=== PATIENT | female | born 1970 | race Caucasian/White ===

== ENCOUNTER 2016-03-11 16:49 | Observation (INO) | payer BC ==
[2016-03-11] MEDS ORDERED: ASPIRIN 81 MG CHEW PO STA (17:30)
[2016-03-11] MEDS ORDERED: NITROGLYCERIN SL TABS 0.4 MG TAB SUBLINGUAL STA (17:30)
--- NOTE | 2016-03-11 17:36 | ED ---
Chest Pain HPI - General Chief Complaint: Chest Pain Stated Complaint: Chest Pain Time Seen by Provider: 03/11/16 17:13 Source: patient, RN notes reviewed Mode of arrival: wheelchair Limitations: no limitations - History of Present Illness Initial Comments: Is a 45-year-old female who is a smoker but who has no personal history of heart or lung disease who states she's been feeling out of sorts since [place]. She states she's been having intermittent episodes of chest pain and left shoulder/scapular pain today she had some left second third finger numbness and tingling which resolved she does complain of some left-sided chest discomfort heartburn-like in nature 7/10 in severity currently is 5/10 also has a headache no nausea no vomiting fevers no chills or sweats. MD Complaint: chest pain - Related Data Home Medications Medication Instructions Recorded Confirmed Atorvastatin [Lipitor] 10 mg PO HS 03/11/16 03/11/16 Cetirizine HCl [Zyrtec] 10 mg PO DAILY PRN 03/11/16 03/11/16 Levothyroxine Sodium [Synthroid] 100 mcg PO DAILY 03/11/16 03/11/16 Allergies Allergy/AdvReac Type Severity Reaction Status Date / Time corn Allergy Rash/Hives Verified 03/11/16 17:49 egg Allergy Rash/Hives Verified 03/11/16 17:49 Milk Containing Products Allergy Rash/Hives Verified 03/11/16 17:49 [Dairy] Review of Systems ROS Statement: Those systems with pertinent positive or pertinent negative responses have been documented in the HPI. ROS Other: All systems not noted in ROS Statement are negative. EKG Findings - EKG Results: EKG: interpreted by NATACHA DUBOSEL, sinus rhythm, normal axis, normal QRS, normal ST/ T, no acute changes (Normal sinus rhythm of 77. Interval 158 QRS duration 84 QT /QTC of 382/[address]-T wave changes.) Past Medical History Past Medical History: Thyroid Disorder History of Any Multi-Drug Resistant Organisms: None Reported Past Surgical History: Section Past Psychological History: ADD/ADHD Smoking Status: Current every day smoker Past Alcohol Use History: Rare Past Drug Use History: None Reported General Exam - General Exam Comments Initial Comments: This is a well-developed well-nourished awake alert oriented x3 female Limitations: no limitations General appearance: alert, anxious Head exam: Present: atraumatic, normocephalic, normal inspection Eye exam: Present: normal appearance, PERRL, EOMI. Absent: scleral icterus, conjunctival injection, periorbital swelling ENT exam: Present: normal exam, mucous membranes moist Neck exam: Present: normal inspection. Absent: tenderness, meningismus, lymphadenopathy Respiratory exam: Present: normal lung sounds bilaterally. Absent: respiratory distress, wheezes, rales, rhonchi, stridor Cardiovascular Exam: Present: regular rate, normal rhythm, normal heart sounds. Absent: systolic murmur, diastolic murmur, rubs, gallop, clicks GI/Abdominal exam: Present: soft, normal bowel sounds. Absent: distended, tenderness, guarding, rebound, rigid, mass, bruit, pulsatile mass Extremities exam: Present: normal inspection, full ROM, normal capillary refill. Absent: tenderness, pedal edema, joint swelling, calf tenderness Back exam: Present: normal inspection Neurological exam: Present: alert, oriented X3, CN II-XII intact Psychiatric exam: Present: normal affect, anxious Skin exam: Present: warm, dry, intact, normal color. Absent: rash Course Vital Signs 03/11/16 03/11/16 17:06 18:37 Temperature 98.2 F Pulse Rate 81 80 Respiratory 20 18 Rate Blood Pressure 129/72 154/75 O2 Sat by Pulse 97 99 Oximetry Chest Pain MDM - MDM Review the x-ray shows no acute findings. Patient had equivocal change from oxygen nitroglycerin. He later family history and the symptoms patient be admitted for evaluation by cardiology. I did discuss case with Dr. Langston. Disposition Clinical Impression: Chest pain, Unstable angina pectoris, Atypical chest pain Disposition: ADMITTED IP TO THIS [facility] Condition: Stable
[2016-03-11 18:29] LABS: Basophils # (A) 0.1 k/uL (0-0.2); Basophils % (A) 1 %; CH 34.7; Eosinophils # (A) 0.3 k/uL (0-0.7); Eosinophils % (A) 4 %; HCT 37.6 % (34.0-46.0); HDW 2.99; HGB 12.5 gm/dL (11.4-16.0); Luc % (Auto) 1; Lymphocytes # (A) 2.6 k/uL (1.0-4.8); Lymphocytes % (A) 31 %; MCH 34.1 pg (25.0-35.0); MCHC 33.2 g/dL (31.0-37.0); MCV 102.7 fL (80.0-100.0); Macrocytosis Slight; Mean Platelet Volume 8.3; Monocytes # (A) 0.4 k/uL (0-1.0); Monocytes % (A) 5 %; Neutrophils # (A) 4.9 k/uL (1.3-7.7); Neutrophils % (A) 58 %; RBC 3.66 m/uL (3.80-5.40); WBC 8.4 k/uL (3.8-10.6); WBC (Perox) 8.54
[2016-03-11 18:40] LABS: ALT 29 U/L (9-52); AST 19 U/L (14-36); Alkaline Phosphatase 84 U/L (38-126); Amylase 32 U/L (30-110); Anion Gap 10 mmol/L; Blood Urea Nitrogen 16 mg/dL (7-17); Calcium 8.3 mg/dL (8.4-10.2); Carbon Dioxide 27 mmol/L (22-30); Chloride 103 mmol/L (98-107); Glucose 80 mg/dL (74-99); Magnesium 2.5 mg/dL (1.6-2.3); Non-African American GFR(MDRD) >60 (>60 ml/min/1.73 sqM); Potassium 4.4 mmol/L (3.5-5.1); Sodium 140 mmol/L (137-145); Total Bilirubin 0.3 mg/dL (0.2-1.3); Total Protein 6.8 g/dL (6.3-8.2)
[2016-03-11 18:43] LABS: Partial Thromboplastin Time 24.7 sec (22.0-30.0); Prothrombin Time 10.4 sec (9.0-12.0)
[2016-03-11 18:56] LABS: Creatine Kinase 45 U/L (30-135)
[2016-03-11 19:07] VITALS: RESP 18
[2016-03-11 19:09] LABS: Creatine Kinase MB 0.3 ng/mL (0.0-2.4); Troponin I <0.012 ng/mL (0.000-0.034)
--- NOTE | 2016-03-11 19:29 | XR ---
EXAMINATION TYPE: XR chest 2V DATE OF EXAM: 03/11/2016 7:23 PM COMPARISON: Prior chest x-ray third January 2014 HISTORY: Chest pain TECHNIQUE: Frontal and lateral views of the chest are obtained. FINDINGS: There is no focal air space opacity, pleural effusion, or pneumothorax seen. The cardiac silhouette size is within normal limits. There are overlying cardiac leads. The osseous structures a re intact. IMPRESSION: No acute cardiopulmonary process.
[2016-03-11] MEDS ORDERED: NITROGLYCERIN SL TABS 0.4 MG TAB SUBLINGUAL PRN (20:41)
[2016-03-11] MEDS ORDERED: LORATADINE 10 MG TAB PO PRN (20:43)
[2016-03-11] MEDS ORDERED: HEPARIN SODIUM,PORCINE/D5W PMX 25,000 UNIT in DEXTROSE/WATER 1 500ML.BAG IV SCH (20:45)
[2016-03-11] MEDS ORDERED: ATORVASTATIN 10 MG TAB PO SCH (21:00)
[2016-03-11] MEDS: HEPARIN SODIUM,PORCINE 5,000 UNIT/ML 1 ML VIAL IV ONE (21:12)
[2016-03-12 01:38] LABS: Creatine Kinase 41 U/L (30-135)
[2016-03-12 01:52] LABS: Creatine Kinase MB 0.3 ng/mL (0.0-2.4); Troponin I <0.012 ng/mL (0.000-0.034)
[2016-03-12] MEDS: NITROGLYCERIN OINT 1 INCH/GM PACKET TOPICAL SCH ×3 (02:09→11:37)
[2016-03-12 04:16] LABS: Cholesterol 101 mg/dL (<200); HDL Cholesterol 34 mg/dL (40-60); Triglycerides 112 mg/dL (<150)
[2016-03-12 05:08] VITALS: BMI 48.5
[2016-03-12] MEDS: HEPARIN SODIUM,PORCINE 5,000 UNIT/ML 1 ML VIAL IV ONE (05:45)
[2016-03-12] MEDS ORDERED: LEVOTHYROXINE 100 MCG TAB PO SCH (06:30)
[2016-03-12 07:49] LABS: Creatine Kinase 36 U/L (30-135)
[2016-03-12 08:02] LABS: Creatine Kinase MB <0.2 ng/mL (0.0-2.4); Troponin I <0.012 ng/mL (0.000-0.034)
--- NOTE | 2016-03-12 08:11 | P.HPIM ---
History of Present Illness H&P Date: 03/12/16 Chief Complaint: Shoulder pain with bilateral arm tingling. This is a history of physical for a 45-year-old white female. She has had odd symptoms of dizziness and lightheadedness since [place]. However, she's been having left shoulder pain with bilateral arm tingling which is minimal becoming more frequent in the last week. She would describe the shoulder and anterior chest pain as a dull ache. No radiation to the jaw however. The patient states swallowing difficulties. However, she is had to change her diet significantly in the last 2 months secondary to being ALLERGIC to cow's milk, and eggs and corn. She states yesterday she ate a portabello mushroom with avocados. Food is not necessary provocative to her symptoms, and neither is activity. However, she has significant risk factors of a brother with premature heart disease. Heart attack there for the age of 50. However, she is also a 1 pack per day smoker for at least 20 years. Had a long discussion regarding smoking cessation. Review of Systems Constitutional: Denies chills, Denies fever Eyes: denies blurred vision, denies pain Ears, nose, mouth and throat: Denies headache, Denies sore throat Cardiovascular: Reports chest pain Respiratory: Reports as per HPI Gastrointestinal: Reports as per HPI Genitourinary: Denies dysuria, Denies hematuria Musculoskeletal: Denies myalgias Past Medical History Past Medical History: Chest Pain / Angina, Hyperlipidemia, Sleep Apnea/CPAP/ BIPAP, Thyroid Disorder Additional Past Medical History / Comment(s): stress test, "sometimes at night wakes up feels like heart is racing", no cpap used, past uti, occ constipation , ddd l4-l5, stated at [facility] had 2 epidoses where when she laughed really hard and bent her head backwaRD AND FELT LIKE SHE WAS GOING TO BLACK OUT. History of Any Multi-Drug Resistant Organisms: None Reported Past Surgical History: Section Additional Past Surgical History / Comment(s): julio carpal tunnel Past Anesthesia/Blood Transfusion Reactions: No Reported Reaction Past Psychological History: ADD/ADHD Additional Psychological History / Comment(s): not currently taking meds for add /adhd, once dx w/ major depressive disorder used to take meds. been off meds for 2 years. a time of admit stated does'nt feel depressed and no thought oF harming self. Smoking Status: Current every day smoker Past Alcohol Use History: Rare Additional Past Alcohol Use History / Comment(s): started smopking at age 17- smoked 1 ppd Past Drug Use History: None Reported - Past Family History Mother Family Medical History: Osteoarthritis (OA) Additional Family Medical History / Comment(s): from lung cacner w/ mets to bones, osteoporsis, hyper active thyroid Father Family Medical History: Cancer Additional Family Medical History / Comment(s): polio, cataracts, had breast cancer w mets no tx, emphysema. . Medications and Allergies Home Medications Medication Instructions Recorded Confirmed Type Atorvastatin [Lipitor] 10 mg PO HS 03/11/16 03/11/16 History Cetirizine HCl [Zyrtec] 10 mg PO DAILY PRN 03/11/16 03/11/16 History Levothyroxine Sodium [Synthroid] 100 mcg PO DAILY 03/11/16 03/11/16 History Allergies Allergy/AdvReac Type Severity Reaction Status Date / Time corn Allergy Rash/Hives Verified 03/11/16 17:49 egg Allergy Rash/Hives Verified 03/11/16 17:49 Milk Containing Products Allergy Rash/Hives Verified 03/11/16 17:49 [Dairy] Physical Exam Vitals: Vital Signs Temp Pulse Pulse Resp BP BP Pulse Ox 03/12/16 05:21 18 03/12/16 04:00 54 L 16 138/75 99 03/12/16 00:00 98.0 F 75 16 121/76 96 03/11/16 21:16 98.1 F 77 18 126/77 100 03/11/16 21:00 18 Intake and Output 03/11/16 03/12/16 03/12/16 22:59 06:59 14:59 Intake Total 170.667 Balance 170.667 Intake: Intake, IV Titration 170.667 Amount Heparin Sodium,Porcine/ 170.667 D5w Pmx 25,000 unit In Dextrose/Water 1 500ml. bag @ 8.58 UNITS/KG/HR 20 mls/hr IV .Q24H [facility] Rx#: [id number] Other: # Voids 1 Weight 116.573 kg - Constitutional General appearance: obese - EENT Eyes: no abnormal pupil - Neck Neck: no lymphadenopathy - Respiratory Respiratory: bilateral: CTA - Cardiovascular Rhythm: regular Heart sounds: normal: S1, S2 - Gastrointestinal General gastrointestinal: soft, no tenderness - Neurologic Neurologic: CNII-XII intact - Psychiatric Psychiatric: A&O x's 3, intact judgment & insight Results CBC & Chem 7: 03/11/16 18:15 03/11/16 18:15 Labs: Abnormal Lab Results - Last 24 Hours (Table) 03/12/16 03/12/16 Range/Units 03:16 03:16 APTT 32.6 H (22.0-30.0) sec HDL Cholesterol 34 L (40-60) mg/dL Thrombosis Risk Factor Assmnt - Choose All That Apply Each Factor Represents 1 point: Age 41-60 years Thrombosis Risk Factor Assessment Total Risk Factor Score: 1 Thrombosis Risk Factor Assessment Level: Low Risk Assessment and Plan (1) Chest pain Status: Acute (2) Unstable angina pectoris Status: Acute Plan: Given her symptomotology and family history with tobacco use, go ahead and order appropriate stress thallium testing if okay with cardiology. 2. Smoking cessation discussed with the patient per Otherwise, it seemingly seems as though she has some type of polycystic ovarian disease. See orders otherwise.
--- NOTE | 2016-03-12 08:45 | P.CRDCN ---
History of Present Illness Consult date: 03/12/16 Chief complaint: Chest discomfort History of present illness: This is a pleasant 45-year-old female patient with a past medical history significant for hypothyroidism and also obesity presented to the hospital complaining of chest discomfort. She describes intermittent episodes of chest discomfort, started about one week ago, as a pressure/dull discomfort over the left side of the chest was some radiation to the neck and left arm. Each episode lasted about a few minutes only. These episodes are not exertional in nature. She underwent an EKG which showed sinus mechanism without any significant ST or T-wave abnormalities. She underwent 3 sets of cardiac enzymes came in to be unremarkable. The patient is not aware of any prior history of coronary artery disease and never seen any chip mucker in the past. In terms of her past medical history, she has dyslipidemia and obesity. She does smoke about one pack per day. She has no significant family history of premature CAD. Past Medical History Past Medical History: Chest Pain / Angina, Hyperlipidemia, Sleep Apnea/CPAP/ BIPAP, Thyroid Disorder Additional Past Medical History / Comment(s): stress test, "sometimes at night wakes up feels like heart is racing", no cpap used, past uti, occ constipation , ddd l4-l5, stated at [place] had 2 epidoses where when she laughed really hard and bent her head backwaRD AND FELT LIKE SHE WAS GOING TO BLACK OUT. History of Any Multi-Drug Resistant Organisms: None Reported Past Surgical History: Section Additional Past Surgical History / Comment(s): julio carpal tunnel Past Anesthesia/Blood Transfusion Reactions: No Reported Reaction Past Psychological History: ADD/ADHD Additional Psychological History / Comment(s): not currently taking meds for add /adhd, once dx w/ major depressive disorder used to take meds. been off meds for 2 years. a time of admit stated does'nt feel depressed and no thought oF harming self. Smoking Status: Current every day smoker Past Alcohol Use History: Rare Additional Past Alcohol Use History / Comment(s): started smopking at age 17- smoked 1 ppd Past Drug Use History: None Reported - Past Family History Mother Family Medical History: Osteoarthritis (OA) Additional Family Medical History / Comment(s): from lung cacner w/ mets to bones, osteoporsis, hyper active thyroid Father Family Medical History: Cancer Additional Family Medical History / Comment(s): polio, cataracts, had breast cancer w mets no tx, emphysema. . Medications and Allergies Home Medications Medication Instructions Recorded Confirmed Type Atorvastatin [Lipitor] 10 mg PO HS 03/11/16 03/11/16 History Cetirizine HCl [Zyrtec] 10 mg PO DAILY PRN 03/11/16 03/11/16 History Levothyroxine Sodium [Synthroid] 100 mcg PO DAILY 03/11/16 03/11/16 History Allergies Allergy/AdvReac Type Severity Reaction Status Date / Time corn Allergy Rash/Hives Verified 03/11/16 17:49 egg Allergy Rash/Hives Verified 03/11/16 17:49 Milk Containing Products Allergy Rash/Hives Verified 03/11/16 17:49 [Dairy] Physical Exam Vitals: Vital Signs Temp Pulse Pulse Pulse Resp BP BP 03/12/16 08:00 98.0 F 72 18 104/53 03/12/16 05:21 18 03/12/16 04:00 54 L 16 138/75 03/12/16 00:00 98.0 F 75 16 121/76 03/11/16 21:16 98.1 F 77 18 126/77 03/11/16 21:00 18 Pulse Ox 03/12/16 08:00 97 03/12/16 05:21 03/12/16 04:00 99 03/12/16 00:00 96 03/11/16 21:16 100 03/11/16 21:00 Intake and Output 03/11/16 03/12/16 03/12/16 22:59 06:59 14:59 Intake Total 170.667 Balance 170.667 Intake: Intake, IV Titration 170.667 Amount Heparin Sodium,Porcine/ 170.667 D5w Pmx 25,000 unit In Dextrose/Water 1 500ml. bag @ 8.58 UNITS/KG/HR 20 mls/hr IV .Q24H COUNT INCLUDES THE [facility] Rx#: [id number] Other: # Voids 1 Weight 116.573 kg - Constitutional General appearance: no acute distress - Respiratory Respiratory: bilateral: CTA - Cardiovascular Rhythm: regular Heart sounds: normal: S1, S2 Results 03/11/16 18:15 03/11/16 18:15 Cardiac Enzymes 03/12/16 03/12/16 Range/Units 00:38 06:43 CK-MB (CK-2) 0.3 <0.2 (0.0-2.4) ng/mL Troponin I <0.012 <0.012 (0.000-0.034) ng/mL Coagulation 03/12/16 Range/Units 03:16 APTT 32.6 H (22.0-30.0) sec Lipids 03/12/16 Range/Units 03:16 Triglycerides 112 (<150) mg/dL Cholesterol 101 (<200) mg/dL HDL Cholesterol 34 L (40-60) mg/dL Current Medications Generic Name Dose Route Start Last Admin Trade Name Freq PRN Reason Stop Dose Admin Aspirin 325 mg 03/12/16 09:00 Aspirin PO DAILY COUNT INCLUDES THE [facility] Atorvastatin Calcium 10 mg 03/11/16 21:00 03/12/16 02:09 Lipitor PO Not Given HS COUNT INCLUDES THE [facility] Heparin Sodium/Dextrose 25,000 500 mls @ 20 mls/hr 03/11/16 20:45 03/12/16 05 :45 unit/ IV Solution IV 11.53 units/kg/hr .Q24H [facility] 26.9 mls/hr Protocol Titration 8.58 UNITS/KG/HR Levothyroxine Sodium 100 mcg 03/12/16 06:30 03/12/16 06:44 Synthroid PO Not Given DAILY@0630 COUNT INCLUDES THE [facility] Loratadine 10 mg 03/11/16 20:43 Claritin PO DAILY PRN Allergy Symptoms Nitroglycerin 1 inch 03/12/16 00:00 03/12/16 06:05 Nitro-Bid Oint TOPICAL Not Given Q6HR COUNT INCLUDES THE [facility] Nitroglycerin 0.4 mg 03/11/16 20:41 Nitrostat SUBLINGUAL Q5M PRN Chest Pain Intake and Output 03/11/16 03/12/16 03/12/16 22:59 06:59 14:59 Intake Total 170.667 Balance 170.667 Intake: Intake, IV Titration 170.667 Amount Heparin Sodium,Porcine/ 170.667 D5w Pmx 25,000 unit In Dextrose/Water 1 500ml. bag @ 8.58 UNITS/KG/HR 20 mls/hr IV .Q24H [facility] Rx#: [id number] Other: # Voids 1 Weight 116.573 kg Assessment and Plan Plan: Assessment #1 atypical chest discomfort #2 significant history of smoking #3 obesity Plan #1 the patient was ruled out for acute coronary event #2 I am proceeding with a stress test #3 smoking cessation was discussed with her #4 DC heparin #5 follow-up with the patient
[2016-03-12] MEDS ORDERED: ASPIRIN 325 MG TAB PO SCH (09:00)
[2016-03-12 11:59] VITALS: BP 134/73; PULSE 77; TEMP 98.8
--- NOTE | 2016-03-12 12:07 | ECHOS ---
DATE OF SERVICE: 03/12/2016 AGE: 45Y SEX: F HT: 61" WT: 257 lbs. Protocol Adis: X Others: Stress Echo Stage: 2 Dur. of Exercise: 4:30 *Heart Rate Blood Pressure *Rest: 92 Rest: 145/63 * *Max. Achieved: 146 Maximum BP: 206/65 85% PMHR: 150 100% PMHR: 177 *METS: 5.8 INDICATIONS: Chest pain. MEDICATIONS: - Baseline EKG revealed a sinus mechanism without significant ST-T changes. Patient walked on a standard Adis protocol for a total duration of 4-1/2 minutes, achieved a maximum heart rate of 146 beats per minute, which is almost 85% of predicted maximal. She developed fatigue and shortness of breath, but did not have any anginal symptoms. She also had some sharp pain in the chest which was very atypical. EKG did not reveal any ST segment changes of concern. There was no arrhythmia. She had hypertensive response to exercise with a peak pressure of 206/65. By EKG criteria, this is a negative stress test with limited exercise capacity because of poor conditioning. Patient achieved almost 85% of her predicted maximum heart rate. Baseline echo images reveal normal wall motion and wall thickening of all segments. At peak exercise, there was good augmentation of left ventricular wall motion and wall thickening of all segments suggesting that there is no evidence of any stress-induced ischemia on this study. FINAL IMPRESSION: 1. Limited exercise capacity probably because of poor conditioning. 2. Hypertensive response to exercise. 3. By EKG criteria, this is a negative stress test without evidence of ischemia. The patient had atypical discomfort in the chest at almost 85% of predicted maximum heart rate. 4. Patient achieved almost 85% of predicted maximal and stress echocardiogram is negative for ischemia.
--- NOTE | 2016-03-26 07:56 | P.DS ---
Providers Date of admission: 03/11/16 20:41 Attending physician: Husam Langston Primary care physician: Husam Langston - Discharge Diagnosis(es) (1) Chest pain Status: Acute (2) Unstable angina pectoris Status: Acute Hospital Course: This is a discharge summary 42-year-old white female essentially admitted for atypical type chest pain. The patient was seen by cardiology and had stress testing done. The patient was discharged after finding no significant finding. She is to follow-up with me in approximately 3-7 days. Patient Condition at Discharge: Stable Plan - Discharge Summary Discharge Medication List Atorvastatin [Lipitor] 10 mg PO HS 03/11/16 [History] Cetirizine HCl [Zyrtec] 10 mg PO DAILY PRN 03/11/16 [History] Levothyroxine Sodium [Synthroid] 100 mcg PO DAILY 03/11/16 [History] Follow up Appointment(s)/Referral(s): Ranjeet Adler MD [STAFF PHYSICIAN] - 03/27/16 2:45 pm Husam Langston MD [Primary Care Provider] - 1 Week Patient Instructions/Handouts: Chest Pain (DC) Discharge Disposition: HOME SELF-CARE
== END 2016-03-12 16:07 | disposition home or self-care (01) ==
LOC: EC 16:49 → 3OBS 20:41
PROVIDERS: ADMIT Family Medicine; ATTEND Family Medicine
DX: R07.89 Other chest pain (principal); E66.9 Obesity, unspecified; F17.210 Nicotine dependence, cigarettes, uncomplicated; E03.9 Hypothyroidism, unspecified; E28.2 Polycystic ovarian syndrome; E78.5 Hyperlipidemia, unspecified; F90.9 Attention-deficit hyperactivity disorder, unspecified type; G47.30 Sleep apnea, unspecified; R13.10 Dysphagia, unspecified; Z80.3 Family history of malignant neoplasm of breast; Z83.6 Family history of other diseases of the respiratory system; Z79.899 Other long term (current) drug therapy
CPT/HCPCS: 36415; 93005; 93017; 93350; 85379; 83880; 80061; 80053; 82150; 82550 ×2; 82553 ×2; 83690; 83735; 84484 ×2; 85025; 85610; 85730 ×2; 71020; 99285; 96365; 96376; G0378 ×2; J1644 ×3; 96366